=== PATIENT | female | born 1955 | race Caucasian/White ===

== ENCOUNTER 2024-11-11 08:20 | Outpatient (OUT) | payer MEDICARE, OTHER, SELFPAY ==
--- NOTE | 2024-11-11 08:24 | XR_ITS ---
[address] [address] Patient Name: SHAHEED MCQUEEN MRN: [id number] date: 1955 Sex: F Assigned Patient Location: [facility] Current Patient Location: [facility] Accession/Order Number: [id number] Exam Date: 11/11/2024 08:35 Report Date: 11/11/2024 23:01 At the request of: MARIA ESTHER WALLACE Procedure: XR DEXA axial skeleton EXAMINATION: XR DEXA axial skeleton HISTORY: Primary Ovarian Failure COMPARISON: DEXA bone densitometry 11/07/2022 TECHNIQUE: Dual-energy X-ray absorptiometry (DXA) was performed. FINDINGS: SPINE ANALYSIS: Average bone mineral density is 0.935 g/cm2. T-score (standard deviation relative to young adult mean): -2.2 . -2.7% change since prior study. HIP ANALYSIS: Lowest bone mineral density is within the right femoral neck, 0.677 g/cm2. T-score (standard deviation relative to young adult mean): -2.6 . -3.7% change since prior study. XR/XR DEXA axial skeleton IMPRESSION: World Health Organization Classification: Osteoporosis - High Fracture Risk FRAX: Cannot be calculated. Pharmacologic treatment recommendations * No uniform recommendation applies to all patients. Management plans must be individualized. * Consider initiating pharmacologic treatment in postmenopausal women and men >= 50 years of age who have the following: Primary fracture prevention: * T-score <= - 2.5 at the femoral neck, total hip, lumbar spine, 33% radius (some uncertainty with existing data) by DXA. * Low bone mass (osteopenia: T-score between - 1.0 and - 2.5) at the femoral neck or total hip by DXA with a 10-year hip fracture risk >= 3% or a 10-year major osteoporosis-related fracture risk >= 20% (i.e., clinical vertebral, hip, forearm, or proximal humerus) based on the [place]-adapted FRAXregistered model. Secondary fracture prevention: * Fracture of the hip or vertebra regardless of BMD [4, 5]. * Fracture of proximal humerus, pelvis, or distal forearm in persons with low bone mass (osteopenia: T-score between - 1.0 and - 2.5). The decision to treat should be individualized in persons with a fracture of the proximal humerus, pelvis, or distal forearm who do not have osteopenia or low BMD [12, 13]. Jose L MS, Anabel SL, Eliza KL, Rika EM, Shaggy KG, AJ, Zee ES. The clinician's guide to prevention and treatment of osteoporosis. Osteoporos Int. 2021;33(10):5071-0609. doi: 10.1007/v29179-194-83863-v. Epub 2021Mar 17. Erratum in: Osteoporos Int. 2021Jun 16;: PMID: [id number]; PMCID: [id number]. Electronically authenticated by: FIGUEROA AVILA Date: 11/11/2024 23:01
== END 2024-11-11 08:21 | disposition home or self-care (01) ==
LOC: RAD 08:20
PROVIDERS: PCP Family Medicine; Visit Provider Family Medicine
DX: E28.39 Other primary ovarian failure (principal); M81.0 Age-related osteoporosis without current pathological fracture
CPT/HCPCS: 77080